=== PATIENT | female | born 1990 | race Caucasian/White ===

== ENCOUNTER 2021-04-09 10:00 | Inpatient (IN) ==
[2021-04-09] MEDS ORDERED: *HR* Nalbuphine 10 MG/ML AMPUL IV PRN (13:34)
[2021-04-09] MEDS ORDERED: Ondansetron 4 MG/2 ML VIAL IVP PRN (13:34)
[2021-04-09] MEDS ORDERED: Lidocaine 1% 20 ML MDV INFILT PRN (13:34)
[2021-04-09] MEDS ORDERED: Famotidine 20 MG/2 ML VIAL IVP PRN (13:34)
[2021-04-09] MEDS ORDERED: Naloxone 0.4 MG/ML INJ IVP PRN (13:34)
[2021-04-09] MEDS ORDERED: Metoclopramide 10 MG/2 ML VIAL IVP PRN (13:34)
[2021-04-09] MEDS ORDERED: Oxytocin 20 units/ LR 1000 mL 20 UNIT/1,000 ML BAG IVC SCH (14:00)
[2021-04-09 14:10] LABS: Hematocrit 29.7 % (35.3-44.9); Hemoglobin 10.3 g/dL (11.5-15.4); Red Blood Count 3.24 M/mcL (3.82-4.97); White Blood Count 12.7 K/mcL (4.3-11.1)
[2021-04-09 14:11] LABS: Basophils % 0.3 %; Eosinophils # 0.2 K/mcL (0.0-0.6); Eosinophils % 1.7 %; Immature Granulocytes % 0.4 % (0-4); Lymphocytes # 1.4 K/mcL (0.6-4.6); Lymphocytes % 10.7 %; Mean Corpuscular HGB Conc 34.7 g/dL (31.6-35.5); Mean Corpuscular Hemoglobin 31.8 pg (28.0-33.3); Mean Corpuscular Volume 91.7 fL (83.0-100.0); Monocytes # 0.6 K/mcL (0.0-1.3); Monocytes % 4.4 %; Neutrophils # 10.5 K/mcL (1.6-8.9); Platelet Count 240 K/mcL (140-400); Red Cell Distribution Width 13.6 % (11.5-14.5); Segmented Neutrophils % 82.5 %
[2021-04-09] MEDS ORDERED: Oxytocin 20 units/ LR 1000 mL 20 UNIT/1,000 ML BAG IVC ONE (14:15)
[2021-04-09 14:16] LABS: Amphetamine Screen,Urine Negative ng/mL (Cutoff=1000); Barbiturate Screen,Urine Negative ng/mL (Cutoff=200); Benzodiazepines Screen,Urine Negative ng/mL (Cutoff=200); Cannabinoid Screen,Urine Negative ng/mL (Cutoff = 50); Cocaine Screen,Urine Negative ng/mL (Cutoff= 300); Opiate Screen,Urine Negative ng/mL (Cutoff=300); Phencyclidine Screen,Urine Negative ng/mL (Cutoff=25)
[2021-04-09] MEDS: Ringers Solution, Lactated 1,000 ML IVC SCH ×2 (14:27→18:52)
[2021-04-09 14:59] LABS: Creatinine,Urine 88 mg/dL; Protein/Creatinine Ratio,Urine 0.69 mg/mg (0.00-0.20)
[2021-04-09 15:01] LABS: Alanine Aminotransferase 9 Units/L (7-52); Aspartate Amino Transferase 13 Units/L (13-39); BUN/Creatinine Ratio 11 (6-26); Blood Urea Nitrogen 7 mg/dL (6-20); Lactate Dehydrogenase 152 Units/L (140-271); Uric Acid 3.7 mg/dL (2.3-7.6); eGFR For African Americans > 60 (> 60); eGFR For Non-African Americans > 60 (> 60)
[2021-04-09] MEDS ORDERED: EPHEDrine 50 MG/ML VIAL IVP PRN (15:48)
[2021-04-09] MEDS ORDERED: Epidural Premix (fent/bupiv) 110 ML EP ONE (15:52)
[2021-04-09] MEDS ORDERED: Epidural Premix (fent/bupiv) 110 ML EP SCH (16:00)
[2021-04-09] MEDS ORDERED: *HR* Labetalol 20 MG/4 ML SYRINGE IVP ONE ×2 (16:38→16:39)
[2021-04-10] MEDS ORDERED: *HR* Labetalol 20 MG/4 ML SYRINGE IVP STA (03:28)
[2021-04-10] MEDS ORDERED: Magnesium Sulf 20 gm/SW 500mL 20 GM/500 ML IV.SOLN IVC SCH (03:30)
[2021-04-10] MEDS: Ringers Solution, Lactated 1,000 ML IVC SCH (03:51)
[2021-04-10] MEDS ORDERED: Calcium Gluconate 1,000 MG/10 ML VIAL IVP PRN (04:03)
[2021-04-10] MEDS ORDERED: Rho Immune Globulin 1,500 UNIT SYRINGE IM PRN (05:47)
[2021-04-10] MEDS ORDERED: Oxytocin 20 units/ LR 1000 mL 20 UNIT/1,000 ML BAG IVC SCH (05:47)
[2021-04-10] MEDS ORDERED: Oxytocin 20 units/ LR 1000 mL 20 UNIT/1,000 ML BAG IVC ONE (05:47)
[2021-04-10] MEDS ORDERED: Lanolin 7 G OINT...G. TP PRN (05:47)
[2021-04-10] MEDS ORDERED: Measles/Mumps/Rubella Vacc 0.5 ML VIAL SQ PRN (05:47)
[2021-04-10] MEDS ORDERED: Benzocaine/Menthol 56 GM AEROSOL SPRAY TP PRN (05:47)
[2021-04-10] MEDS ORDERED: NON-FORMULARY MEDICATION 1 EACH EACH (Prenat 115/Iron Fum/Folic/Dss [Prenatal 19 Tablet] 1 PO SCH (09:00)
[2021-04-10] MEDS: Ibuprofen 600 MG TABLET PO SCH ×2 (09:34→17:55)
[2021-04-10] MEDS: Prenatal Vit/FA 1 EACH TABLET PO SCH (09:34)
[2021-04-10] MEDS: Acetaminophen 325 MG TABLET PO SCH ×2 (09:34→17:55)
[2021-04-10] MEDS: Folic Acid 1 MG TABLET PO SCH (09:51)
[2021-04-10 09:57] LABS: Alanine Aminotransferase 8 Units/L (7-52); Aspartate Amino Transferase 16 Units/L (13-39); BUN/Creatinine Ratio 8 (6-26); Blood Urea Nitrogen 5 mg/dL (6-20); Lactate Dehydrogenase 181 Units/L (140-271); Uric Acid 3.3 mg/dL (2.3-7.6); eGFR For African Americans > 60 (> 60); eGFR For Non-African Americans > 60 (> 60)
[2021-04-10 19:06] LABS: Basophils % 0.1 %; Eosinophils # 0.1 K/mcL (0.0-0.6); Hematocrit 18.9 % (35.3-44.9); Hemoglobin 6.9 g/dL (11.5-15.4); Immature Granulocytes % 0.5 % (0-4); Lymphocytes # 1.3 K/mcL (0.6-4.6); Lymphocytes % 9.5 %; Mean Corpuscular HGB Conc 36.5 g/dL (31.6-35.5); Mean Corpuscular Hemoglobin 32.9 pg (28.0-33.3); Monocytes # 0.7 K/mcL (0.0-1.3); Monocytes % 5.2 %; Neutrophils # 11.8 K/mcL (1.6-8.9); Platelet Count 219 K/mcL (140-400); Red Cell Distribution Width 13.3 % (11.5-14.5); Segmented Neutrophils % 83.7 %
[2021-04-10] MEDS: *HR* Enoxaparin 40 MG/0.4 ML SYRINGE SQ SCH (20:30)
[2021-04-11 05:42] LABS: Basophils # 0.1 K/mcL (0.0-0.2); Basophils % 0.4 %; Eosinophils # 0.3 K/mcL (0.0-0.6); Eosinophils % 1.8 %; Hematocrit 22.6 % (35.3-44.9); Hemoglobin 7.7 g/dL (11.5-15.4); Immature Granulocytes % 0.5 % (0-4); Lymphocytes # 2.5 K/mcL (0.6-4.6); Lymphocytes % 16.3 %; Mean Corpuscular HGB Conc 34.1 g/dL (31.6-35.5); Mean Corpuscular Hemoglobin 32.6 pg (28.0-33.3); Mean Corpuscular Volume 95.8 fL (83.0-100.0); Mean Platelet Volume 10.2 fL (9.4-12.4); Monocytes # 0.8 K/mcL (0.0-1.3); Monocytes % 5.3 %; Neutrophils # 11.6 K/mcL (1.6-8.9); Platelet Count 238 K/mcL (140-400); Red Blood Count 2.36 M/mcL (3.82-4.97); Red Cell Distribution Width 14.1 % (11.5-14.5); Segmented Neutrophils % 75.7 %; White Blood Count 15.3 K/mcL (4.3-11.1)
[2021-04-11] MEDS: Folic Acid 1 MG TABLET PO SCH (07:40)
[2021-04-11] MEDS: Prenatal Vit/FA 1 EACH TABLET PO SCH (07:41)
[2021-04-11] MEDS: Ibuprofen 600 MG TABLET PO SCH ×3 (07:41→21:18)
[2021-04-11] MEDS: Acetaminophen 325 MG TABLET PO SCH ×2 (07:41→14:54)
[2021-04-11] MEDS: *HR* Enoxaparin 40 MG/0.4 ML SYRINGE SQ SCH (07:42)
[2021-04-11] MEDS ORDERED: NIFEdipine XL (24 HR) 30 MG TAB.ER.24 PO SCH (09:00)
[2021-04-11 20:42] VITALS: BP 144/86; PULSE 92; TEMP 98.1; O2SAT 99
== END 2021-04-11 21:15 | disposition home or self-care (01) | DRG 542 ==
LOC: 1NENULAB 13:20 → 1NENUOBS 04-10 08:37
PROVIDERS: ADMIT Obstetrics & Gynecology; ATTEND Obstetrics & Gynecology